=== PATIENT | male | born 1965 ===

== ENCOUNTER 2024-10-04 09:28 | Outpatient (AMB) | payer BC, SELFPAY ==
--- NOTE | 2024-10-04 09:37 | MHC.OFFVIS ---
Vital Signs 10/04/24 09:40 Height 5 ft 8 in Weight 225 lb BMI 34.2 BP 124/62 Blood Pressure Location Lt brachial Position Sitting Pulse 91 Pulse Source Pulse Oximeter Pulse Oximetry (%) 93 Oxygen Delivery Method Room Air Intake Visit Reasons: Obstructive sleep apnea Allergies No Known Allergies Allergy (Verified 10/04/24 09:42) HPI HPI Obstructive sleep apnea: Details: 58-year-old gentleman with underlying diagnosis of severe obstructive sleep apnea with respiratory event index of 67 and titration study showing need for CPAP of at least 16 cm of water referred for LEONIDAS management. Patient is interested in CPAP therapy. He also appears to have underlying nocturnal hypoxemia that may not be fully correctable with CPAP. [facility] Social History (Updated 10/04/24 @ 09:43 by Regina Grimes Andrzej) Patient Tobacco Use Status: Current everyday Tobacco user Tobacco use type: Cigarette Cigarette Packs Per Day: 0.5 Years Smoked: started age 20, 0.5 PPD Review of Systems Const Denies daytime sleepiness, Denies excessive sweating, Denies fatigue, Denies fever(s), Denies lethargy, Denies malaise, Denies night sweats, Denies snoring and Denies weight loss Eyes Denies blurry vision and Denies itchy eyes ENT Denies nasal congestion, Denies post nasal drip, Denies sinus pain, Denies sinus pressure and Denies other ( Thrush) Card Denies chest pain, Denies pedal edema, Denies dyspnea, Denies orthopnea and Denies paroxysmal nocturnal dyspnea Resp Denies cough, Denies hemoptysis, Denies excessive phlegm production, Denies dyspnea, Denies snoring and Denies wheezing GI Denies abdominal pain and Denies heartburn Musc Denies myalgias, Denies arthralgias and Denies joint swelling Skin/Breast Denies rash Neuro Denies memory loss and Denies seizure-like activity Psych Denies abnormal sleep pattern, Denies anxiety and Denies memory loss Endo Denies excessive sweating, Denies fatigue and Denies heat intolerance Bandar/Lymph Denies easy bruising Aller/Immun Denies itchy eyes, Denies seasonal rhinorrhea and Denies wheezing Physical Exam Vital Signs: Last Vital Signs Pulse 91 10/04/24 09:40 BP 124/62 10/04/24 09:40 Pulse Ox 93 08/26/25 09:40 Oxygen Delivery Method Room Air 08/26/25 09:40 BMI result Body Mass Index 34.2 Const General: no acute distress and alert Nutritional Appearance: not obese Orientation/consciousness: Other orientation findings ( oriented) HEENT Head: Yes atraumatic Eyes General: appearance normal, both eyes and all related structures Sclerae: sclerae normal EOM: EOMs intact bilaterally Neck Neck: Yes supple Lymphatic: no lymphadenopathy noted Resp Effort & Inspection: normal respiratory effort and no use of accessory muscles Auscultation: clear to auscultation bilaterally Cardio Rate: regular rate Rhythm: regular rhythm Heart sounds: no gallops, no murmurs and no rubs Skin General skin exam: other ( warm) Extrem General: No clubbing, No cyanosis and No edema Assessment & Plan Assessment & Plan (1) LEONIDAS (obstructive sleep apnea): Code(s): G47.33 - Obstructive sleep apnea (adult) (pediatric) Category: Medical Plan: Severe obstructive sleep apnea with JO ANN of 67, will start on APAP of 12-18 cm of water. (2) Nocturnal hypoxemia: Code(s): G47.34 - Idiopathic sleep related nonobstructive alveolar hypoventilation Category: Medical Plan: Nocturnal hypoxemia with possibility of note full correction with APAP. Will start on APAP and perform overnight oximetry in 4-6 weeks. Coding Level of Care Code New Pt Level 4 (17725) Diagnoses LEONIDAS (obstructive sleep apnea) G47.33 Nocturnal hypoxemia G47.34
[2024-10-04 09:40] VITALS: BP 124/62; PULSE 91; O2SAT 93; BMI 34.2
--- OUTSIDE RECORDS SUMMARY | 2024-10-04 10:04 | XMS_ITS ---
Author Name [facility] Organization Unknown Care Team Organization Name Specialty Phone Email Start Date End Da te [facility] 09/28/2024 [facility] 12/17/2021 09/28/19 24
--- OUTSIDE RECORDS SUMMARY | 2024-10-04 10:04 | XMS_ITS | Clinical Summary ---
Author Organization [facility] Address [address] [place] [id number] Care Team Providers Care Front Desk Name Role Phone Irma Verdin MD Primary Care Provider [phone] Social History Tobacco Use Types Packs/Day Years Used Date Smoking Tobacco: Never Assessed Sex and Gender Information Value Date Recorded Sex Assigned at Not on file Legal Sex Male 3:37 PM EDT Gender Identity Not on file Sexual Orientation Not on file Last Filed Vital Signs Vital Sign Reading Time Taken Comments Blood Pressure 154/83 04/22/2020 3:59 PM EDT Pulse 93 04/22/2020 3:59 PM EDT Temperature 36.7 C (98 F) 04/22/2020 3:59 PM EDT Respiratory Rate - - Oxygen Saturation 96% 04/22/2020 3:59 PM EDT Inhaled Oxygen Concentration - - Weight 90.7 kg (200 lb) 04/22/2020 3:59 PM EDT Height 172.7 cm (5' 8 ) 04/22/2020 3:59 PM EDT Body Mass Index 30.41 04/22/2020 3:59 PM EDT Plan of Treatment Health Maintenance Due Date Last Done Comments Hepatitis C Virus Screening 1965 HIV Screening 10/23/1980 DTaP/Tdap/Td Vaccines (1 - Tdap) 10/23/1986 Hepatitis B Vaccines (1 of 3 - 19+ 3-dose series) 10/10 Colonoscopy 10/23/2012 Pneumococcal Vaccines 50+ (1 of 1 - PCV) 10/23/2017 Zoster (Shingles) Vaccine (1 of 2) 10/23/2017 COVID-19 Vaccine (1 - season) 2023 Influenza Vaccine 09/09/2024 Insurance [facility] Care Teams Front Desk Relationship Specialty Start Date End Date Irma Verdin MD [address] [facility] [address] [place] [address] PCP - General 04/22/20
--- OUTSIDE RECORDS SUMMARY | 2024-10-04 10:04 | XMS_ITS | Encounter Summary ---
Author Organization [facility] Address [address] [place] [address] Care Team Providers Care Meat Manager Name Role Phone Irma Verdin MD Primary Care Provider Reason for Visit * Reason Onset Date Comments Fax demographics 09/06/2024 Encounter Details Date Type Department Care Team (Late st Contact Info) Description 09/06/2024 [facility] - [address] [place] [address] Irma Verdin MD [address] [place] [phone] Social History Tobacco Use Types Packs/Day Years Used Date Smoking Tobacco: Every Day Smokeless Tobacco: Never Sex and Gender Information Value Date Recorded Sex Assigned at Not on file Legal Sex Male 2:42 AM EST Gender Identity Not on file Sexual Orientation Not on file documented as of this encounter Progress Notes * Sharri Guadalupe [place] - 09/06/2024 1:24 PM EDT Faxed * Maria R Gee - 09/06/2024 8:55 AM EDT [facility] called and requested additional demographics including insurance to be sent over to them so patient can be seen. Please advise Cb# [phone] documented in this encounter Plan of Treatment Upcoming Encounters Date Type Department Care Team (Late st Contact Info) Description 12/02/2024 11:15 AM EDT Office Visit Internal Medicine - [place] [address] [facility] [address] [place] [phone] Irma Verdin MD [address] [place] [phone] documented as of this encounter Visit Diagnoses Not on filedocumented in this encounter Care Teams Meat Manager Relationship Specialty Start Date End Date Irma Verdin MD [address] [facility] [address] [place] [phone] PCP - General Internal Medicine 04/27/24 documented as of this encounter
--- OUTSIDE RECORDS SUMMARY | 2024-10-04 10:04 | XMS_ITS | Clinical Summary ---
Author Organization [address] Address [address] [place] [phone] Phone Care Team Providers Care Business Management Specialist Name Role Phone Irma Verdin MD Primary Care Provider [phone] Allergies No known active allergies Medications albuterol HFA (PROAIR HFA ; PROVENTIL HFA ; VENTOLIN HFA) 90 mcg/actuation inhaler Inhale 2 Puffs into the lungs every 6 hours as needed for Cough or Wheezing. 3 Active aspirin 81 mg EC tablet Take 1 tablet (81 mg total) by mouth 1 (one) time each day. 9 Active cilostazoL (PLETAL) 50 mg tablet Take 1 tablet (50 mg total) by mouth 2 (two) times a day. 4 Active fluticasone propionate (FLONASE) 50 mcg/actuation nasal spray 2 Sprays by Nasal route daily. 3 Active omega-3 acid ethyl esters (LOVAZA) 1 gram capsule Take 1 capsule (1 g total) by mouth 1 (one) time each day. 3 Active mupirocin (BACTROBAN) 2 % ointment Apply topically 2 (two) times a day. 44 g 3 5 Active doxycycline hyclate (VIBRA-TABS) 100 mg tablet Take 1 tablet (100 mg total) by mouth 2 (two) times a day. 30 tablet 5 Active atorvastatin (LIPITOR) 40 mg tablet Take 1.5 tablets (60 mg total) by mouth at bedtime. 135 tablet 1 5 Active losartan (COZAAR) 50 mg tablet TAKE 1 TABLET DAILY 90 tablet 1 5 Active Active Problems Problem Noted Date Diagnosed Date Hidradenitis suppurativa 10/30/2023 Allergic sinusitis 06/19/2022 Primary hypertension 06/19/2022 Snoring 06/19/2022 Aorto-iliac atherosclerosis ([facility] V24) 2017 Hyperlipidemia 04/02/2017 Erectile dysfunction 03/18/2016 Encounters Date Type Department Care Team Description 09/06/2024 Telephone Internal Medicine [facility] [address] [facility] [address] [place] [address] Irma Verdin MD from Last 3 Months Surgical History Surgery Date Site/Laterality Comments TONSILLECTOMY PROCEDURE: HISTORICAL TONSILLECTOMY Medical History Medical History Date Comments Aorto-iliac atherosclerosis ([facility] V24) 04/02/2017 DX:Aorto-iliac atheroscleros is ([facility]) Erectile dysfunction 03/18/2016 DX:Erectile dysfunction Hyperlipidemia 04/02/2017 DX:Hyperlipidemi a Tobacco use 06/23/2017 DX:Tobacco use Social History Tobacco Use Types Packs/Day Years Used Date Smoking Tobacco: Every Day Smokeless Tobacco: Never Tobacco Cessation:Ready to Q uit: Not Asked; Counseling Given: Not Answered Sex and Gender Information Value Date Recorded Sex Assigned at Not on file Legal Sex Male 2:42 AM EST Gender Identity Not on file Sexual Orientation Not on file Obstetrics History Last Filed Vital Signs Vital Sign Reading Time Taken Comments Blood Pressure 132/80 05/05/2024 11:17 AM EDT Pulse 87 05/05/2024 11:13 AM EDT Temperature 36.6 C (97.8 F) 05/05/2024 11:13 AM EDT Respiratory Rate - - Oxygen Saturation 95% 05/05/2024 11:13 AM EDT Inhaled Oxygen Concentration - - Weight 102 kg (224 lb) 05/05/2024 11:13 AM EDT Height 172.7 cm (5' 8 ) 10/30/2023 11:24 AM EDT Body Mass Index 34.06 10/30/2023 11:24 AM EDT Plan of Treatment Upcoming Encounters Date Type Department Care Team (Late st Contact Info) Description 12/02/2024 11:15 AM EDT Office Visit Internal Medicine - [address] [place] [address] Irma Verdin MD [address] [place] [phone] Health Maintenance Due Date Last Done Comments DTaP,Tdap,and Td Vaccines (1 - Tdap) 10/23/1986 Hepatitis A Vaccines (1 of 2 - Risk 2-dose series) 10/23/1986 Hepatitis B Vaccines (1 of 3 - 19+ 3-dose series) 10/23/1986 Pneumococcal Vaccine: 50+ Years (1 of 2 - PCV) 10/23/1986 Zoster Vaccines (1 of 2) 10/23/2017 Colorectal Cancer Screening: Colonoscopy 01/18/2022 HIV Screening 01/18/2022 Hepatitis C Screening 01/18/2022 Social Influencers of Health Screening 01/18/2022 COVID-19 Vaccine (1 - 2023-2 5 season) 2023 Depression Screening 02/10/2024 Influenza Vaccine (#1) 2024 Hypertension/CHF/CAD Annual BMP Blood Test 04/27/2025 04/27/2024, 06/25/2023, 06/25/2023 Cholesterol Screening (Lipid Panel) 04/27/2029 04/27/2024, 06/25/2023, 06/25/2023 HIB Vaccines Aged Out No longer eligi ble based on patient's age to complete this topic HPV Vaccines Aged Out No longer eligi ble based on patient's age to complete this topic IPV Vaccines Aged Out No longer eligi ble based on patient's age to complete this topic MMR Vaccines Aged Out No longer eligi ble based on patient's age to complete this topic Meningococcal ACWY Vaccine Aged Out N o longer eligible based on patient's age to complete this topic Meningococcal B Vaccine Aged Out No l onger eligible based on patient's age to complete this topic RSV Immunization Patients Under 20 months Aged Out No longer eligible b ased on patient's age to complete this topic Varicella Vaccines Aged Out No longer eligible based on patient's age to complete this topic Procedures Procedure Name Priority Date/Time Associated Diagnosis Comments COMPREHENSIVE METABOLIC PANEL Routine 04/27/2024 10:06 AM EDT Mixed hyperlipidemia Primary hypertension LIPID PANEL WITH REFLEX TO DIRECT LDL Routine 04/27/2024 10:06 AM EDT Mixed hyperlipidemia Primary hypertension from Last 3 Months or Most Recently Relevant to Health Maintenance Results * (ABNORMAL) Lipid panel with reflex to direct LDL (04/27/2024 10:06 AM EDT) Cholesterol 150 0 - 200 mg/dL LAB CHEMISTRY METHOD 04/27/2024 1:14 PM EDT [facility] Triglycerides 94 0 - 150 mg/dL LAB CHEMISTRY METHOD 04/27/2024 1:14 PM EDT [facility] HDL 31(L) >=40 mg/dL LAB CHEMISTRY METHOD 04/27/2024 1:14 PM EDT [facility] LDL Calculated 100 0 - 100 mg/dL LAB CHEMISTRY METHOD 04/27/2024 1:14 PM EDT [facility] VLDL Cholesterol Sebas 18.8 mg/dL LAB CHEMISTRY METHOD 04/27/2024 1:14 PM EDT [facility] Non HDL Chol. (LDL+VLDL) 119 <145 mg/dL LAB CHEMISTRY METHOD 04/27/2024 1:14 PM EDT [facility] Chol/HDL Ratio 4.8(H) 0.0 - 4.4 LAB CHEMISTRY METHOD 04/27/2024 1:14 PM EDT [facility] Blood Venous blood specimen / Unknown Venipuncture / Unknown 04/27/2024 10:06 AM EDT 04/27/2024 10:06 AM EDT us Irma Verdin MD LAB BLOOD ORDERABLES Final Res ult [facility] [address] [place] [address], * Comprehensive metabolic panel (04/27/2024 10:06 AM EDT) Sodium 138 133 - 145 mmol/L LAB CHEMISTRY METHOD 04/27/2024 1:14 PM [facility] Potassium 5.1 3.5 - 5.5 mmol/L LAB CHEMISTRY METHOD 04/27/2024 1:14 PM [facility] Chloride 103 96 - 110 mmol/L LAB CHEMISTRY METHOD 04/27/2024 1:14 PM [facility] CO2 29 21 - 32 mmol/L LAB CHEMISTRY METHOD 04/27/2024 1:14 PM [facility] Anion Gap 6 3 - 11 LAB CHEMISTRY METHOD 04/27/2024 1:14 PM [facility] Glucose 85 70 - 100 mg/dL LAB CHEMISTRY METHOD 04/27/2024 1:14 PM [facility] BUN 11 5 - 25 mg/dL LAB CHEMISTRY METHOD 04/27/2024 1:14 PM [facility] Creatinine 0.74 0.70 - 1.30 mg/dL LAB CHEMISTRY METHOD 04/27/2024 1:14 PM [facility] eGFR 106 >=60 mL/min/1. 73m2 LAB CHEMISTRY METHOD 04/27/2024 1:14 PM [facility] Comment:Calculation based on the Chronic Kidney Disease Epidemiology Collaboration (CKD-EPI) equation refit without adjustment for race. BUN/Creatinine Ratio 14.9 LAB CHEMISTRY METHOD 04/27/2024 1:14 PM [facility] Calcium 9.6 8.5 - 10.5 mg/dL LAB CHEMISTRY METHOD 04/27/2024 1:14 PM [facility] AST (SGOT) 20 10 - 42 unit/L LAB CHEMISTRY METHOD 04/27/2024 1:14 PM [facility] ALT (SGPT) 42 10 - 60 unit/L LAB CHEMISTRY METHOD 04/27/2024 1:14 PM [facility] Alkaline Phosphatase 75 42 - 121 unit/L LAB CHEMISTRY METHOD 04/27/2024 1:14 PM EDT [facility] Total Protein 7.0 6.0 - 8.0 g/dL LAB CHEMISTRY METHOD 04/27/2024 1:14 PM EDT [facility] Albumin 4.1 3.2 - 5.0 g/dL LAB CHEMISTRY METHOD 04/27/2024 1:14 PM EDT [facility] Total Bilirubin 0.5 0.0 - 1.4 mg/dL LAB CHEMISTRY METHOD 04/27/2024 1:14 PM EDT [facility] Blood Venous blood specimen / Unknown Venipuncture / Unknown 04/27/2024 10:06 AM EDT 04/27/2024 10:06 AM EDT Irma Verdin MD LAB BLOOD ORDERABLES Final Res ult [facility] [address] [place] [address], from Last 3 Months or Most Recently Relevant to Health Maintenance Insurance ) Care Teams Business Management Specialist Relationship Specialty Start Date End Date Irma Verdin MD [address] [phone] PCP - General Internal Medicine 04/27/24
== END 2024-10-04 11:00 | disposition home or self-care (01) ==
LOC: HO.HPS 09:28
PROVIDERS: PCP Internal Medicine; Visit Provider Internal Medicine Pulmonary Disease
DX: G47.33 Obstructive sleep apnea (adult) (pediatric) (principal); G47.34 Idiopathic sleep related nonobstructive alveolar hypoventilation
CPT/HCPCS: 99204